=== PATIENT | female | born 1980 | race Caucasian/White ===

== ENCOUNTER 2016-10-24 03:50 | Emergency (ER) | payer OTHER ==
[~2016-10-24] VITALS: Ht 167.6 cm; Wt 69.5 kg
[~2016-10-24 03:50] MED LIST: GABA-502 PO; VENL75CA PO
[2016-10-24 03:55] VITALS: BP 153/96; PULSE 98; RESP 18; O2SAT 99
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
[2016-10-24] MEDS ORDERED: Ketorolac 30 mg/mL 2 mL Inj IM ONE (04:20)
[2016-10-24] MEDS ORDERED: TRAM50TA2 PO (04:53)
[2016-10-24 05:22] VITALS: BP 136/94; PULSE 87; RESP 24; O2SAT 96
--- NOTE | 2016-10-24 10:11 | DRSVH ---
PROCEDURE: X-RAY LEFT RIBS INCLUDEING PA CHEST, MINUMUM THREE VIEWS ([id number]) INDICATIONS: fall 24 hours ago TECHNIQUE: 3 views of the left ribs were acquired, along with a single view chest. COMPARISON: None. FINDINGS: Surgical changes and devices: None. Bones and chest wall: No fractures or dislocations. No suspicious bony lesions. Overlying soft tis sues appear unremarkable. Lungs and pleura: No pleural effusions or pneumothorax. Lungs appear clear. Mediastinum: Mediastinal contours appear normal. Heart size is normal. IMPRESSION: No displaced left rib fractures. Dictated by: Rikki Treviño [facility] Interpreted: Gardenia Tran MD on 10/24/2016 at 10:11 Transcribed by: JULITA on 10/24/2016 at 10:11 Approved by: Gardenia Tran MD, PhD on 10/24/2016 at 16:55
== END 2016-10-24 05:23 | disposition home or self-care (01) ==
LOC: SED 03:50
DX: S20.212A Contusion of left front wall of thorax, initial encounter (principal); W22.09XA Striking against other stationary object, initial encounter; Y93.55 Activity, bike riding; Y92.9 Unspecified place or not applicable; Y99.8 Other external cause status; K21.9 Gastro-esophageal reflux disease without esophagitis; F17.200 Nicotine dependence, unspecified, uncomplicated
CPT/HCPCS: 71101; 96372; 99284; J1885

== ENCOUNTER 2017-03-06 15:49 | Emergency (ER) | payer OTHER ==
[~2017-03-06 15:49] MED LIST changes: +TRAM50TA2 PO
[2017-03-06 16:19] VITALS: PULSE 72; RESP 22; O2SAT 98
[2017-03-06] MEDS ORDERED: LISI-567 PO (16:31)
[2017-03-06] MEDS ORDERED: Ondansetron 2 mg/mL 2 mL Inj IVPUSH PRN (17:20)
[2017-03-06] MEDS ORDERED: 0.9% Sodium Chloride 1,000 ML IV ONE (17:20)
[2017-03-06] MEDS ORDERED: HYDROmorphone 1 mg/mL Inj IVPUSH PRN (17:30)
[2017-03-06 17:44] LABS: BASOPHILS % (AUTO) 0.2 % (0-3); EOSINOPHILS % (AUTO) 0.2 % (0-5); MONOCYTES % (AUTO) 4.9 % (4-12); Mean Corpuscular Volume 87.9 fL (81-100); NEUTROPHILS % (AUTO) 86.6 % (40-74); Platelet Count 280 bil/L (150-400)
--- NOTE | 2017-03-06 17:55 | ED.REPORT ---
HPI-Abd Pain F Under 40 Date of Service March 06, 2017 ED Provider: Modesto Moseley DO Patient is a 36 year old female with a history of rheumatoid arthritis and Sj gren's syndrome with hepatic involvement and neuropathy who presents to the ED complaining of LLQ abdominal pain that started last night. Patient is in severe pain distress and is somewhat a poor historian. She describes the pain as sharp and unrelenting. The pain radiates "everywhere" throughout the abdomen and to the back. Patient also admits to subjective fever, nausea, vomiting, loose stool , anorexia, and dysuria. Patient has not noticed any other urinary symptoms or blood in her urine. She denies CP, SOB, bloody stool, or hematemesis. She denies any aggravating or alleviating factors. She has not eaten anything since last night due to the pain and nausea. Nursing reports bile colored emesis in the triage area. She admits to smoking Tobacco and marijuana "as much as I can, " but denies alcohol or other drug use. Patient never had pain like this in the past. She had an appendectomy, but her gallbladder is still intact. Patient [place] Nursing Notes Stated Complaint: STOMACH PAIN Chief Complaint: Female Abdominal Pain Nursing Notes Reviewed: Yes Allergies: Coded Allergies: No Known Allergies (Verified Allergy, Unknown, 10/24/16) Scheduled Gabapentin (Gabapentin) 300 Mg Capsule 300 MG PO TID Lisinopril (Lisinopril) 20 Mg Tablet 20 MG PO DAILY Venlafaxine ER (Effexor XR) 75 Mg Capsule 75 MG PO BID Scheduled PRN Tramadol (Tramadol) 50 Mg Tablet 100 MG PO Q6H PRN PRN For Pain General Time Seen by MD: 17:06 Chief Complaint Abdominal pain (diffuse, worse on the left side) Hx Obtained From: Patient Arrived By: Walk-in Location: : Back: Diffuse (worse in the LLQ): Flank left: Flank right Quality: Sharp Radiation: : Abdomen lower: Abdomen upper: Back: Flank left: Flank right: Suprapubic Severity: Current: Pain level 10 out of 10 Severity: Maximum: Pain level 10 out of 10 Associated with: Reports: Anorexia, Back pain, Diarrhea, Dysuria, Fever, Nausea , Urinary tract symptoms, Vomiting, Denies: Chest pain, Chills, Constipation, Hematemesis, Hematochezia, Hematuria, Melena, Shortness of breath Pertinent Negative: Pt denies other symptoms Pertinent Negative: Exacerbated by nothing, Relieved by nothing Recent Healthcare: No recent doctor visit, No recent hospitalization Similar Sx Previous: No Past Medical History Past Medical History Sjogren's synndrome with hepatic involvement and neuropathy Rheumatoid Arthritis GERD Past Surgical History Reports: Appendectomy, , Hysterectomy Family History Denies Smoking History Current Every Day Smoker Social History Alcohol Use: Denies alcohol use Drug Use: THC Other Social History: Poor social support, Lives alone, Local resident Occupation unemployed. Likely homeless. Ambulatory Status Independent Review of Systems Constitutional: Reports: Fever, Denies: Chills Respiratory: Denies: Dyspnea on exertion, Hemoptysis, Pleuritic pain, Shortness of breath, Wheezing Cardiovascular: Denies: Chest pain, Dyspnea on exertion, Edema, Palpitations, Syncope GI: Reports: Abdominal pain, Anorexia, Diarrhea, Nausea, Vomiting, Denies: Bloody/tarry stool, Constipation, Dysphagia, Hematemesis, Hematochezia Female: Reports: Dysuria, Flank pain, Denies: Hematuria Musculoskeletal: Reports: Back pain Complete sys rev & neg: except as marked. Skin: Reports Itching, Reports Rash Neurologic: Denies: Confusion, Dizziness, Focal weakness, Headache, Lightheaded , Numbness Psychiatric: Reports: Anxiety, Denies: Change mental status, Confusion, Delusional Physical Exam Initial Vital Signs Vital Signs (First) Date Time Temp Pulse Resp B/P Pulse Ox O2 Delivery O2 Flow Rate FiO2 03/06/17 16:19 36.3 72 22 98 Initial VS: Reviewed Head / Eyes: Atraumatic, Normocephalic, PERRL Neck: Supple, Non-tender, Full range of motion General/Constitutional: Awake, Alert Distress / Hydration: Positive: Dehydration mild, Distress severe (pain) Behavior: Positive: Anxious, Appears intoxicated, Restless, Uncooperative Appearance / Presentation: Positive: Hygiene poor, Uncomfortable Respiratory / Chest: Atraumatic, Breath sounds NL, Breath sounds = bilat, No respiratory distress, No rales, No wheezing, No retractions Cardiovascular: Heart rate NL, Regular rhythm, Heart sounds NL, No gallop, No murmurs Abdomen: Soft, No distention Tenderness/Guarding/Rebound: Positive: Guarding voluntary, Tender diffuse, Tender flank L, Tender flank R Bowel Sounds / Distention: Positive: Bowel sounds hypoactive Back: Atraumatic, Full range of motion Flank / Spine / Paraspinal: Positive: Flank tender bilateral Rash / Lesion Notes: Diffuse papular rash throughout body. Some macular rash on face. Likely due to poor hygiene or skin picking. Neurologic: Oriented X3, Speech NL Abnormal Mood/Affect: Positive: Anxious, Irritable Interpretation & Diagnostics Lab Results Interpretation Result Diagram: 03/06/17 1734 03/06/17 1734 Test 03/06/17 17:34 03/06/17 17:39 White Blood Count 17.5th/mm3 (3.8-10.1) Red Blood Count 4.64mil/mm3 (3.90-5.20) Hemoglobin 14.4g/dL (12.0-15.6) Hematocrit 40.8% (35.0-46.0) Mean Corpuscular Volume 87.9fL (81-100) Mean Corpuscular Hemoglobin 31.0pg (27.0-35.0) Mean Corpuscular Hemoglobin Concent 35.3% (32.0-37.0) Red Cell Distribution Width 14.2% (12.3-15.4) Platelet Count 280bil/L (150-400) Neutrophils (%) (Auto) 86.6% (40-74) Lymphocytes (%) (Auto) 7.8% (14-46) Monocytes (%) (Auto) 4.9% (4-12) Eosinophils (%) (Auto) 0.2% (0-5) Basophils (%) (Auto) 0.2% (0-3) Sodium Level 140mEq/L (134-144) Potassium Level 4.2mEq/L (3.5-5.2) Chloride Level 101mEq/L (97-108) Carbon Dioxide Level 25mmol/L (18-29) Blood Urea Nitrogen 10mg/dL (6-20) Creatinine 0.63mg/dL (0.57-1.00) Estimat Glomerular Filtration Rate 152mL/min (>59) Glucose Level 109mg/dL (60-99) Lactic Acid Level 0.9mmol/L (0.4-2.0) Calcium Level 9.6mg/dL (8.5-10.1) Total Bilirubin 0.6mg/dL (0.0-1.2) Aspartate Amino Transf (AST/SGOT) 29U/L (0-50) Alanine Aminotransferase (ALT/SGPT) 17U/L (0-32) Alkaline Phosphatase 78U/L (25-150) Total Protein 8.0g/dL (6.4-8.4) Albumin 4.0g/dL (3.4-5.0) Lipase 22U/L (13-60) Hold Urine Received (Received) Re-Eval/Medical Decision Med Decision/Clinical Course 36 year old female with a history of rheumatoid arthritis and Sjgren's syndrome with hepatic involvement and neuropathy who presents to the ER for acute onset of diffuse abdominal pain, worse on the LLQ since last night. She also reports subjective fever, nausea, vomiting, diarrhea, and dysuria. Patient has never had similar symptoms in the past. She is somewhat a poor historian due to significant anxiety and pain. She is very fidgeting and keeps rocking back and forth on the bed. Very poor hygiene with several skin lesions throughout face and body. Abdominal exam reveals pain out of portion to exam, very tender to palpation to light touch, and voluntary guarding. In light of her vague history and possible drug use, we will check urine tox screen and urine test to rule out withdrawal/intoxication and ectopic , respectively. UA is pending. We also check her CBC, CMP, and Lipase for sign of infection and pancreatitis. Case was discussed with Dr. Chris, who took over the patient's care at 1800. Discharge & Departure Shift Change Sign-Out Patient Care Transferred: Yes Referrals: NOPCP (PCP) Care Transferred to: [facility] Transferred at: 18:00 Attending Statment The patient was seen and examined together with Dr. Woody on 03/06/17 and I agree with the history, exam and plan as outlined in the note above. Dimas Woody DO March 06, 2017 17:08 Modesto Moseley DO March 06, 2017 18:09
[2017-03-06] MEDS ORDERED: cefTRIAXone Inj 2,000 MG in Dextrose 5% Minibag Plus 50 ML IV ONE (19:00)
[2017-03-06 19:32] LABS: APPEARANCE,URINE CLEAR (CLEAR,HAZY); COLOR,URINE YELLOW (YELLOW); PH,URINE 7.5 (5.0-8.0)
[2017-03-06 19:33] LABS: OCCULT BLOOD,URINE NEGATIVE (NEGATIVE); UROBILINOGEN,URINE NORMAL (NORMAL)
[2017-03-06 19:34] VITALS: BP 159/95; PULSE 77; RESP 20; O2SAT 98
--- NOTE | 2017-03-06 20:08 | DRSVH ---
PROCEDURE: CT ABDOMEN AND PELVIS WITH CONTRAST ([id number]) INDICATIONS: abdominal pain LLQ/L flank TECHNIQUE: After the administration of intravenous contrast, 5 mm thick sections acquired from the diaphragm to the symphysis. 5 mm coronal and sagittal reformats were acquired. For radiation dose reduction, the following was used: automated exposure control, adjustment of mA and/or kV according to patient siz e. COMPARISON: None. FINDINGS: Image quality: Excellent. ABDOMEN: Lung bases: Lung bases are clear. Heart size is normal. Solid organs: Liver and spleen are normal in size and enhancement. Gallbladder is within normal up its. Biliary system is non dilated. Pancreas enhances normally. No adrenal nodules. Kidneys demon strate normal size and enhancement, without hydronephrosis on the right. There is mild hydronephrosis on the left without identifiable obstruction. Ureters thought to be slightly distended on the left t o the bladder. The urothelium appears to enhance and this would suggest inflammation. No masses or st ones are seen in the bladder. Peritoneum and bowel: Bowel loops demonstrate normal wall thickness and caliber. No free fluid or a ir. Nodes and vessels: No retroperitoneal or mesenteric adenopathy by size criteria. Aorta and inferior vena cava are normal in size. Miscellaneous: No ventral hernias. PELVIS: Genitourinary: Bladder wall thickness is normal. Uterus has been removed in the past. Miscellaneous: No inguinal hernias or adenopathy. Bones: No suspicious bony lesions. No vertebral body compression fractures. IMPRESSION: Changes that would suggest pyelonephritis are present with mild hydronephrosis and hydrou reter without identifiable cause to the level of the bladder. Dictated by: Rocael Frost M.D. on 03/06/2017 at 19:57 Approved by: Rocael Frost M.D. on 03/06/2017 at 20:07
[2017-03-06] MEDS ORDERED: AMOX-354 PO (20:35)
[2017-03-06 20:42] VITALS: BP 166/100; PULSE 85; RESP 16; O2SAT 100
== END 2017-03-06 20:40 | disposition home or self-care (01) ==
LOC: SED 15:49
DX: N10 Acute pyelonephritis (principal); F15.10 Other stimulant abuse, uncomplicated; K21.9 Gastro-esophageal reflux disease without esophagitis; F17.200 Nicotine dependence, unspecified, uncomplicated; Z90.710 Acquired absence of both cervix and uterus; Z79.899 Other long term (current) drug therapy
CPT/HCPCS: 36415; 74177; 80053; 81000; 81025; 83605; 83690; 85025; 87077; 87086; 87088; 87491; 87591; 96365; 96366; 96375; 99285; J0696; J1170; J2405; J7030; Q9967